=== PATIENT | female | born 1985 | race Caucasian/White ===

== ENCOUNTER 2017-04-27 20:40 | Observation (INO) ==
[2017-04-27] MEDS ORDERED: MORPHINE 2 MG/1 ML SYRINGE IV STA (21:04)
[2017-04-27] MEDS ORDERED: METOCLOPRAMIDE 10 MG/2 ML VIAL IV STA (21:04)
[2017-04-27] MEDS ORDERED: ONDANSETRON 4 MG/2 ML VIAL IV STA (21:04)
[2017-04-27] MEDS ORDERED: NITROGLYCERIN 2% OINT 1 INCH/GM PACK TOP STA (21:04)
--- NOTE | 2017-04-27 21:08 | Emergency Department Note ---
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 The patient does have a history of coronary artery disease with a prior history of an NH associated with stent placement this past August by Dr. Gonzales. Until today she has had no significant cardiac related problems. Currently she still has some mild degree of pain present and is still somewhat nauseated. Otherwise she is medically stable. Onset (ago): hour(s) (Patient presents 24 hours post onset of symptom) Allergies/Adverse Reactions: Allergies Allergy/AdvReac Type Severity Reaction Status Date / Time No Known Allergies Allergy Verified 04/27/17 20:51 Home Medications: Home Medications Medication Instructions Recorded Confirmed Type Citalopram [CeleXA] 20 mg PO DAILY 03/03/16 01/23/17 History Oxybutynin Xl [Ditropan Xl] 1 each PO DAILY 03/04/16 01/23/17 History Pantoprazole Tab [Protonix Tab] 40 mg PO BID #60 tablet 03/06/16 01/23/17 Rx Pregabalin [Lyrica] 75 mg PO BID 08/22/16 01/23/17 History Aspirin EC Tab 81 mg PO DAILY #30 tablet 08/24/16 01/23/17 Rx Lisinopril [Prinivil] 5 mg PO DAILY #30 tablet 08/24/16 01/23/17 Rx Metoprolol Tartrate Tab [Lopressor 25 mg PO BID #60 tablet 08/24/16 01/23/17 Rx Tab] Rosuvastatin [Crestor] 20 mg PO BEDTIME #30 tablet 08/24/16 01/23/17 Rx Ticagrelor [Brilinta] 90 mg PO BID #60 tablet 08/24/16 01/23/17 Rx Ketorolac Tab [Toradol Tab] 10 mg PO Q8H #14 tablet 01/24/17 Rx Review of System - Review of System 12 point system: reviewed and no additional remarkable complaints except as stated - Review of System Constitutional: Present: as per HPI Respiratory: Present: as per HPI Cardiovascular: Present: as per HPI Gastrointestinal: Present: as per HPI Medical,Surgical,& Family Hx - Medical History Cardio: History of: NH (stent Aug 2016) No history of: Hypertension Psychological: History of: Anxiety Disorders Endocrine: History of: Thyroid Disorder (MOTHER) No history of: Diabetes Mellitus (NIDDM) Rheumatology: History of;: Fibromyalgia Genitourinary: History of: Bladder Problem (overactive bladder) Gastrointestinal: History of: GERD - Surgical History Cardiac Surgeries: Sugical HX of: Cardiac Catheterization Thoracic Surgeries: Surgical HX of;: Lithotripsy Neurologic Surgeries: Patient denies: Neurologic Surgery HEENT Surgeries: Surgical HX of: Tonsilectomy & Adenoidectomy Reproductive Surgeries: Surgical HX of;: Section (X 3), Dilation and Curettage, Hysterectomy Orthopedic Surgeries: Surgical HX of;: Orthopedic Surgery (maninder horvath) Patient denies;: Total Knee Replacement - Family History Family History: Reports;: Family Cancer (MOTHER,OVARIAN, HAD HYSTERECTOMY), Family Diabetes (MOTHER), Family Heart Disease (MOTHER), Family Hypertension ( MOTHER, FATHER), Family Psychiatric Problems (FATHER HAS DEPRESSION) - Social History Smoking Status: Current every day smoker Exam Physical Examination: GENERAL: Well developed, well nourished white female in no acute distress. HEENT: Normocephalic. No trauma. Moist mucous membranes. EOMI. PERRLA. ENT NML NECK: Supple. No adenopathy. CARDIAC: Regular. No murmurs. Heart rate 58 CHEST: Clear to auscultation. No respiratory distress. O2 sat 98% ABDOMEN: Soft. Nontender. Active bowel sounds. EXTREMITIES: No trauma. Normal ROM. No pedal edema. SKIN: No diaphoresis. No rash. NEURO: Alert. Neuro intact no focal deficits. Vital Signs: Vital Signs Temperature 98.2 F 04/27/17 20:45 Pulse Rate 58 L 04/27/17 20:45 Respiratory Rate 18 04/27/17 20:45 Blood Pressure 156/89 04/27/17 20:45 O2 Sat by Pulse Oximetry 99 04/27/17 20:45 Course - Reevaluation(s) Reevaluation #1: Discussed with patient the results of her studies but given her premature atherosclerotic history she has been advised to come in on observation for serial studies. - Consultations Consultation #1: Discussed with the hospitalist service who will admit for further evaluation treatment. Results - Labs CBC & BMP: 04/27/17 21:25 04/27/17 21:25 Labs: I reviewed the laboratory noted the normal results including the normal cardiac' s. - Impressions EKG: Sinus bradycardia 57. Normal ME interval and QRS duration. Normal ST segments. Normal EKG. - Diagnostic Findings Procedure: Chest x-ray: image reviewed by me, report reviewed by me (No acute process, no interval change.) Disposition Clinical Impression: Angina, Status post NH/stent Case discussed with: patient, patient's family Disposition: Still a Patient Condition: Stable Time of Disposition: 22:15
[2017-04-27] MEDS ORDERED: NITROGLYCERIN 2% OINT 1 INCH/GM PACK TOP ONE (21:37)
[2017-04-27] MEDS ORDERED: MORPHINE 2 MG/1 ML SYRINGE ONE (21:38)
[2017-04-27] MEDS ORDERED: METOCLOPRAMIDE 10 MG/2 ML VIAL ONE (21:38)
[2017-04-27] MEDS ORDERED: ONDANSETRON 4 MG/2 ML VIAL ONE (21:38)
[2017-04-27 21:39] LABS: Basophils # 0.1 10*3/uL (0.0-0.2); Basophils % 0.8 % (0.0-0.8); Eosinophils # 0.3 10*3/uL (0.0-0.87); Eosinophils % 2.7 % (0.00-10.9); Hematocrit 37.9 VOL% (35.7-47.0); Hemoglobin 13.5 GM/DL (12.0-16.0); Immature Granulocytes % 0.4 %; Immature Granulocytes Absolute 0.04 #; Lymphocytes # 4.2 10*3/uL (1.4-4.0); Lymphocytes % 37.6 % (21.3-54.2); Mean Corpuscular HGB Conc 35.6 GM/DL (32-36); Mean Corpuscular Hemoglobin 29 PG (27-34); Mean Corpuscular Volume 81.9 FL (87-102); Mean Platelet Volume 8.8 FL (9.6-12.0); Monocytes # 0.9 10*3/uL (0.11-0.8); Monocytes % 7.9 % (1.7-12.7); Neutrophils # 5.7 10*3/uL (1.4-7.4); Neutrophils % 50.6 % (38.7-73.9); Platelet Count 326 T/CUMM (130-400); Red Blood Count 4.63 MC/CUMM (3.8-5.5); White Blood Count 11.3 T/CUMM (4-12)
[2017-04-27 21:45] LABS: Apearance,Urine CLEAR (Clear); Bilirubin,Urine Negative (Negative); Blood, Urine Small mg/dL (Negative); Glucose,Urine (UA) Negative (Negative); Ketones,Urine Negative (Negative); Mucus,Urine Occasional /LPF (Occasional); Nitrite,Urine Negative (Negative); Protein,Urine 30 MG/DL; RBC,Urine 2 /HPF (0-4); Squamous Epithelial Cell,Urine Occasional /HPF (0-10); Urine Color Yellow (Yellow); Urine Specific Gravity 1.012 (1.001-1.035); WBC,Urine 1 /HPF (0-6)
[2017-04-27 21:53] LABS: Barbiturates Screen,Urine Negative (Negative); Benzodiazepines Screen,Urine Negative (Negative); Cannabinoid Screen,Urine Negative (Negative); Opiate Screen,Urine Negative (Negative); Phencyclidine Screen,Urine Negative (Negative)
[2017-04-27 22:05] LABS: Alanine Aminotransferase 38 U/L (13-56); Albumin 3.5 G/DL (3.4-5.0); Alkaline Phosphatase 83 U/L (45-117); Aspartate Amino Transferase 28 U/L (0-37); Bilirubin,Total < 0.39 MG/DL (0.2-1.0); Blood Urea Nitrogen 9 MG/DL (7-18); Calcium 8.5 MG/DL (8.5-10.1); Glucose 106 MG/DL (74-106); Osmolality,Calculated 275.5 MOS/KG (273-304); Potassium 3.8 MMOL/L (3.5-5.1); Sodium 139 MMOL/L (136-145); Total Protein 7.5 G/DL (6.4-8.3); Troponin I Only < 0.015 NG/ML (0.00-0.045)
[2017-04-28] MEDS ORDERED: MORPHINE 2 MG/1 ML SYRINGE IV PRN (01:21)
[2017-04-28] MEDS ORDERED: ONDANSETRON 4 MG/2 ML VIAL IV PRN (01:21)
[2017-04-28] MEDS ORDERED: ACETAMINOPHEN 325 MG TABLET PO PRN (01:21)
[2017-04-28] MEDS ORDERED: LACTULOSE 20 GM/30 ML UDCUP PO PRN (01:21)
--- NOTE | 2017-04-28 01:40 | Hospitalist History & Physical ---
Assessment and Plan (1) Chest pain Status: Acute Assessment and plan: -oxygen - history of DC - chest wall tenderness present so it may be musculoskeletal - stopped Chantix because it may be contributing to chest discomfort - telemetry - serial cardiac enzyme - Nitropaste on chest from ER - Pain control - Lipid panel - echocardiogram - will monitor Current Visit: No History of Present Illness Chief complaint: Chest pain History of present illness: Ms. Sandoval is a 31 year old female with a history of hypertension, fibromyalgia, dyslipidemia, myocardial infarction (s/p 1 stent placed in LAD in August 2016 ) that presented to the ER with chest pain that started 1 day prior to admission. Patient reports that she has pain was in the left shoulder/upper chest region as described as moderate to severe and a dull ache. Patient also reports left jaw pain but she says it may be related to TMJ. Patient does report experiencing nausea, vomiting, diaphoresis but no shortness of breath or palpitations. Patient denies any other symptom. Of note, patient has been taking Chantix for 3 weeks so it may be contributing chest pain. By the time of exam, symptoms have resolved. Patient took nitroglycerin prior to arrival. Nitropaste was placed in [facility] ER and patient was also given Zofran, Reglan, and Morphine. ER workup was unremarkable. Patient was admitted to hospitalist service for observation. Home Medications Medication Instructions Recorded Confirmed Type Oxybutynin Xl [Ditropan Xl] 1 each PO DAILY 03/04/16 04/28/17 History Pantoprazole Tab [Protonix Tab] 40 mg PO BID #60 tablet 03/06/16 04/28/17 Rx Pregabalin [Lyrica] 75 mg PO BID 08/22/16 04/28/17 History Aspirin EC Tab 81 mg PO DAILY #30 tablet 08/24/16 04/28/17 Rx Lisinopril [Prinivil] 5 mg PO DAILY #30 tablet 08/24/16 04/28/17 Rx Rosuvastatin [Crestor] 20 mg PO BEDTIME #30 tablet 08/24/16 04/28/17 Rx Ticagrelor [Brilinta] 90 mg PO BID #60 tablet 08/24/16 04/28/17 Rx Citalopram [CeleXA] 1 tablet PO DAILY 04/28/17 04/28/17 History Metoprolol Tartrate 1 tablet PO BID 04/28/17 04/28/17 History PARoxetine [Paxil] 1 tablet PO DAILY 04/28/17 04/28/17 History Varenicline Tartrate [Chantix 1 tablet PO DAILY 04/28/17 04/28/17 History Starter Month Pack] Allergies Allergy/AdvReac Type Severity Reaction Status Date / Time No Known Allergies Allergy Verified 04/27/17 20:51 Medical,Surgical,& Family Hx - Medical History Cardio: History of: DC (stent Aug 2016) No history of: Hypertension Psychological: History of: Anxiety Disorders Endocrine: History of: Thyroid Disorder (MOTHER) No history of: Diabetes Mellitus (NIDDM) Rheumatology: History of;: Fibromyalgia Genitourinary: History of: Bladder Problem (overactive bladder) Gastrointestinal: History of: GERD - Surgical History Cardiac Surgeries: Sugical HX of: Cardiac Catheterization Thoracic Surgeries: Surgical HX of;: Lithotripsy Neurologic Surgeries: Patient denies: Neurologic Surgery HEENT Surgeries: Surgical HX of: Tonsilectomy & Adenoidectomy Reproductive Surgeries: Surgical HX of;: Section (X 3), Dilation and Curettage, Hysterectomy Orthopedic Surgeries: Surgical HX of;: Orthopedic Surgery (maninder horvath) Patient denies;: Total Knee Replacement - Family History Family History: Reports;: Family Cancer (MOTHER,OVARIAN, HAD HYSTERECTOMY), Family Diabetes (MOTHER), Family Heart Disease (MOTHER), Family Hypertension ( MOTHER, FATHER), Family Psychiatric Problems (FATHER HAS DEPRESSION) - Social History Smoking Status: Current every day smoker Review of systems: 12 point review of systems is negative unless stated in the HPI Exam - Constitutional Vitals: Period Temp Pulse Resp BP Sys/Galvan Pulse Ox Last 24 Hr 98.2 F-98.3 F 58-68 15-18 103-156/67-89 98-99 General appearance: no acute distress, over weight - Head Head exam: Present: normal inspection - Eye Eye exam: Present: EOMI - ENT ENT exam: Present: normal exam - Neck Neck exam: Present: normal inspection - Respiratory Respiratory exam: Present: clear to auscultation bilaterally, chest wall tenderness (left upper chest/shoulder area) - Cardiovascular Cardiovascular exam: Present: regular rate and rhythm. Absent: systolic murmur - GI/Abdominal GI/Abdominal exam: Present: normal bowel sounds, soft. Absent: distended, mass , tenderness - Extremities Exam Extremities exam: Present: normal inspection, other (peripheral pulses intact). Absent: edema - Neurological Exam Neurological exam: Present: alert, oriented X3 - Psychiatric Psychiatric exam: Present: normal affect, normal mood - Skin Skin exam: Present: normal color, warm, dry Results - Labs CBC & BMP: 04/27/17 21:25 04/27/17 21:25 - EKG EKG results: WNL, sinus rhythm, normal ST/T - Diagnostic Findings Procedure: Chest x-ray: pending
--- NOTE | 2017-04-28 02:52 | EKG Report ---
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
--- NOTE | 2017-04-28 02:52 | EKG Report ---
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
--- NOTE | 2017-04-28 05:03 | EKG Report ---
Stationary ECG Study 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
[2017-04-28 05:35] LABS: Troponin I Only < 0.015 NG/ML (0.00-0.045)
[2017-04-28 06:13] LABS: Risk Ratio 3.63; VLDL CHOLESTEROL 57.2 MG/DL
[2017-04-28 06:31] LABS: Troponin I Only < 0.015 NG/ML (0.00-0.045)
--- NOTE | 2017-04-28 07:04 | XRay Report ---
Portable chest. Indication: Chest pain. Comparison: December 04, 2016. The heart and mediastinal contours are unremarkable. The pulmonary vasculature is normal. There are hypoaeration changes present at both lung bases. No consolidation, pneumothorax, or pleural effusion. No significant bony finding. Impression: Bilateral basilar hypoaeration. PROCEDURE INTERPRETED AT [facility] DEPARTMENT OF RADIOLOGY Final Report Signed by: Dr. Angelina Reza
[2017-04-28] MEDS ORDERED: CITALOPRAM 40 MG TABLET PO SCH (09:00)
[2017-04-28] MEDS: OXYBUTYNIN XL 5 MG TABLET PO SCH (09:42)
[2017-04-28] MEDS: PANTOPRAZOLE 40 MG TABLET PO SCH ×2 (09:42→21:04)
[2017-04-28] MEDS: ENOXAPARIN 40 MG/0.4 ML SYRINGE SUBCUT SCH (09:42)
[2017-04-28] MEDS: ASPIRIN EC 81 MG TABLET PO SCH (09:42)
[2017-04-28] MEDS: METOPROLOL TARTRATE 25 MG TABLET PO SCH ×2 (09:42→21:03)
[2017-04-28] MEDS: PARoxetine 20 MG TABLET PO SCH (09:42)
[2017-04-28] MEDS: PREGABALIN 75 MG CAPSULE PO SCH ×2 (09:42→21:02)
[2017-04-28] MEDS: TICAGRELOR 90 MG TABLET PO SCH ×2 (09:42→21:03)
[2017-04-28] MEDS: LISINOPRIL 5 MG TABLET PO SCH (09:46)
--- NOTE | 2017-04-28 11:40 | Cardiology Consult Note ---
<Mariela Valdivia E - Last Filed: 04/28/17 12:06> Assessment and Plan - Time spent with patient Time spent with patient: Greater than 30 minutes (due to assessment, plan, and documentation) Time spent discussing smoking cessation with patient: 3 to 10 minutes (1) Chest pain Status: Acute Assessment and plan: See plan of care listed below. Current Visit: No (2) Coronary artery disease Status: Chronic Assessment and plan: See plan of care listed below. Current Visit: Yes (3) Tobacco abuse Status: Chronic Assessment and plan: See plan of care listed below. Current Visit: Yes (4) Anxiety Status: Chronic Assessment and plan: See plan of care listed below. Current Visit: Yes (5) GERD (gastroesophageal reflux disease) Status: Chronic Assessment and plan: See plan of care listed below. Current Visit: No (6) Family history of premature CAD Status: Chronic Current Visit: Yes History of Present Illness - Data of Consult Patient: known to practice within the last 3 years Consult date: 04/28/17 Requesting Physician: Sherri Berry Primary care physician: Meghan Dutton - Consult Narrative Reason for consult: chest pain History of present illness: Vehicle Dynamics Engineer: Dr. Gonzales PCP: Meghan Dutton Ms. Sandoval is a 31 year old female with a history of coronary artery disease, anxiety, GERD, tobacco abuse, and prior STEMI. She is s/p acute anterior myocardial infarction August 2016 when she received a BRYAN to her proximal LAD. She has had resolution of her wall motion abnormalities and had an essentially normal perfusion study done 3 months post event on 10/21/16. Since that time, she has presented to the emergency room for evaluation of chest discomfort which eventually was felt to be related to fibromyalgia and she has done well since that time. She was seen in clinic by Dr. Gonzales on 03/31 and was doing well at that time. At that time, she was ready to stop smoking and was started on a Chantix starter pack. She presented to the emergency room on 04/27/17 with complaints of chest pain that began Wednesday night. She tells me that this pain has stayed the same and has not gotten any worse or better until her arrival in the emergency room. She describes it as a sharp, stabbing pain with associated nausea, vomiting, and diaphoresis. She denies any shortness of breath or palpitations. She states that she took 2 sublingual nitroglycerin and they seem to help for a minute but she can still feel the pain. She states then the nitroglycerin made her chest feel heavy and numb and as if her heart was racing. She denies any recent exertional chest pain or shortness of breath. She notes no other exacerbating or alleviating factors. Her pain is nonreproducible to palpation, movement, or deep breath. Her pain did radiate from her left upper chest to left shoulder and left jaw/neck. She also has a history of TMJ. Upon arrival, her EKG has been unremarkable. She has been in sinus bradycardia. Her cardiac biomarkers have been negative. Her potassium is normal at 3.8, creatinine 0.7, H&H stable at 13.5 and 37.9. Lipid panel revealed triglycerides 286, cholesterol 87, LDL 35, HDL 24. ASSESSMENT/PLAN: 1. CHEST PAIN - With many atypical features of angina but significant risk factors. He has ruled out for HI. Will further discuss with Dr. Hunt and await additional recommendations. Per Dr. Gonzales's last note, he recommended repeat stress testing 6 months from prior stress test. 2. CORONARY ARTERY DISEASE - She is s/p acute anterior myocardial infarction August 2016 when she received a BRYAN to her proximal LAD. She has had resolution of her wall motion abnormalities and had an essentially normal perfusion study done 3 months post event on 10/21/16. 3. TOBACCO ABUSE - Currently trying to quit. She has cut down to 6 cigarettes daily. She has been trying Chantix but it was thought this could possibly be contributing to her chest discomfort. The patient tells me Dr. Gonzales was hesitant to try Wellbutrin due to her recently being changed from Celexa to Paxil. 4. ANXIETY - Chronic. 5. GERD - Continue PPI BID. 6. FAMILY HISTORY OF PREMATURE CAD CC: Sherri Berry MD - Home Medications and Allergies Home Medications: Home Medications Medication Instructions Recorded Confirmed Type Oxybutynin Xl [Ditropan Xl] 1 each PO DAILY 03/04/16 04/28/17 History Pantoprazole Tab [Protonix Tab] 40 mg PO BID #60 tablet 03/06/16 04/28/17 Rx Pregabalin [Lyrica] 75 mg PO BID 08/22/16 04/28/17 History Aspirin EC Tab 81 mg PO DAILY #30 tablet 08/24/16 04/28/17 Rx Lisinopril [Prinivil] 5 mg PO DAILY #30 tablet 08/24/16 04/28/17 Rx Rosuvastatin [Crestor] 20 mg PO BEDTIME #30 tablet 08/24/16 04/28/17 Rx Ticagrelor [Brilinta] 90 mg PO BID #60 tablet 08/24/16 04/28/17 Rx Citalopram [CeleXA] 1 tablet PO DAILY 04/28/17 04/28/17 History Metoprolol Tartrate 1 tablet PO BID 04/28/17 04/28/17 History PARoxetine [Paxil] 1 tablet PO DAILY 04/28/17 04/28/17 History Varenicline Tartrate [Chantix 1 tablet PO DAILY 04/28/17 04/28/17 History Starter Month Pack] Allergies/Adverse Reactions: Allergies Allergy/AdvReac Type Severity Reaction Status Date / Time No Known Allergies Allergy Verified 04/27/17 20:51 Review of systems: - Constitutional: Present: As per HPI. Absent: anorexia, chills, daytime sleepiness, excessive sweating, fever(s), frequent falls, headache(s), increased appetite, lethargy, malaise, night sweats, stops breathing during sleep, weakness, weight gain, weight loss, fatigue. - EENT Eyes: Present: As per HPI. Absent: blurry vision, diplopia, loss of vision Ears: Present: As per HPI. Absent: decreased hearing, ear discharge, ear pain Nose, mouth and throat: Present: As per HPI. Absent: dysphagia, epistaxis, headache(s), hoarseness, lip swelling, nasal congestion, neck mass, neck pain, sinus pressure, sore throat, throat swelling, tongue swelling, vertigo - Cardiovascular: Present: chest pain at rest, radiating jaw, neck or arm pain, diaphoresis, occasional BLE edema, as per HPI. Absent: chest pain with activity, dyspnea, dyspnea on exertion, claudication, lightheadedness, orthopnea , palpitations, PND - Respiratory: Present: as per HPI. Absent: dyspnea, dyspnea on exertion, cough , hemoptysis, wheezing, snoring, pain on inspiration - Gastrointestinal: Present: nausea, vomiting, As per HPI. Absent: abdominal pain, bloating, change in bowel habits, constipation, diarrhea, heartburn, hematemesis, hematochezia, loose stools, melena, - Genitourinary: Present: As per HPI. Absent: difficulty urinating, dysuria, flank pain, hematuria, nocturia, urinary frequency, urinary incontinence - Musculoskeletal: Present: As per HPI. Absent: arthralgias, back pain, joint swelling, limited range of motion, muscle cramps, muscle weakness, myalgias - Neurological: Present: As per HPI. Absent: abnormal gait, abnormal speech, behavioral changes, confusion, convulsions, disequilibrium, dizziness, focal weakness, frequent falls, headache(s), memory loss, numbness, paresthesias, radicular pain, syncope, tremor(s) - Psychiatric: Present: As per HPI. Absent: anxiety, confusion, depression, panic attacks - Endocrine: Present: As per HPI. Absent: cold intolerance, fatigue, heat intolerance, polydipsia, polyphagia - Hematologic/Lymphatic: Present: As per HPI. Absent: easy bleeding, easy bruising, lymphadenopathy Medical,Surgical,& Family Hx - Medical History Cardio: History of: CAD, HI (stent Aug 2016) No history of: Hypertension Psychological: History of: Anxiety Disorders Endocrine: History of: Thyroid Disorder (MOTHER) No history of: Diabetes Mellitus (NIDDM) Rheumatology: History of;: Fibromyalgia Genitourinary: History of: Bladder Problem (overactive bladder) Gastrointestinal: History of: GERD - Surgical History Cardiac Surgeries: Sugical HX of: Cardiac Catheterization Thoracic Surgeries: Surgical HX of;: Lithotripsy Neurologic Surgeries: Patient denies: Neurologic Surgery HEENT Surgeries: Surgical HX of: Tonsilectomy & Adenoidectomy Reproductive Surgeries: Surgical HX of;: Section (X 3), Dilation and Curettage, Genitourinary Surgery, Hysterectomy Orthopedic Surgeries: Surgical HX of;: Orthopedic Surgery (torn patilla) Patient denies;: Total Knee Replacement - Family History Family History: Reports;: Family Cancer (MOTHER,OVARIAN, HAD HYSTERECTOMY), Family Diabetes (MOTHER), Family Heart Disease (MOTHER), Family Hypertension ( MOTHER, FATHER), Family Psychiatric Problems (FATHER HAS DEPRESSION) - Social History Smoking Status: Current every day smoker Type of Drug Use: None Marital Status: Lives With:: Spouse Functional capacity: independent ambulation Physical Examination Vital Signs Temp Pulse Resp BP Pulse Ox 98.2 F 58 L 18 156/89 99 04/27/17 20:45 04/27/17 20:45 04/27/17 20:45 04/27/17 20:45 04/27/17 20:45 Exam: General appearance: Pleasant and cooperative. Overweight, no acute distress. Head exam: Present: normal inspection, normocephalic, atraumatic. Absent: hematoma, laceration Eye exam: Present: EOMI. Absent: conjunctival injection, nystagmus, periorbital swelling, scleral icterus, laceration to eyelids Pupils: Present: PERRL. Absent: constricted, dilated, fixed, irregular, unequal ENT exam: Present: normal exam, normal external ear exam Neck exam: Present: normal inspection. Absent: lymphadenopathy, meningismus, tenderness, thyromegaly, carotid bruit Respiratory exam: Present: clear to auscultation bilaterally. Absent: accessory muscle use, chest wall tenderness, rales, rhonchi, wheezing. Cardiovascular exam: Present: regular rate and rhythm. Absent: gallop, JVD, rubs, chest wall tenderness GI/Abdominal exam: Present: normal bowel sounds, soft. Absent: distended, firm , guarding, hernia, mass, tenderness, rebound. Extremities exam: Present: normal inspection, normal capillary refill. Upper extremity pulses 2+. Lower extremity pulses 2+. Absent: calf tenderness, edema Musculoskeletal: Present: No Fluid Collection, No Pain, Normal Range of Motion Back exam: Present: normal inspection. Absent: muscle spasm, vertebral tenderness Neurological exam: Present: alert, oriented X3, grossly intact without resting or essential tremor Psychiatric exam: Present: normal affect, normal mood Skin exam: Present: normal color, warm, dry, intact. Absent: cyanosis, diaphoretic, rash, urticaria Result/EKG - Labs CBC & BMP: 04/27/17 21:25 04/27/17 21:25 Lab Results: I have reviewed the past 24 hour labs Labs: Laboratory Results - last 24 hr 04/27/17 04/27/17 04/27/17 21:25 21:25 21:25 WBC RBC Hgb Hct MCV MCH MCHC RDW Plt Count MPV Neut % (Auto) Lymph % (Auto) [place] % (Auto) Eos % (Auto) Baso % (Auto) Neut # (Auto) Lymph # (Auto) [place] # (Auto) Eos # (Auto) Baso # (Auto) Immature Gran % Nucleated RBC % Immature Gran # Nucleated RBCs # Immature Plt Fraction Sodium 139 Potassium 3.8 Chloride 108 H Carbon Dioxide 26 Anion Gap 8.8 BUN 9 Creatinine 0.70 GFR Calculation 123 BUN/Creatinine Ratio 12.00 Glucose 106 Calculated Osmolality 275.5 Calcium 8.5 Total Bilirubin < 0.39 AST 28 ALT 38 Alkaline Phosphatase 83 Total Creatine Kinase 149 CK-MB (CK-2) 2.5 Troponin I < 0.015 Total Protein 7.5 Albumin 3.5 Globulin 4.0 H Albumin/Globulin Ratio 0.8 L Triglycerides Cholesterol LDL Cholesterol VLDL Cholesterol HDL Cholesterol Heart Disease Risk Ratio Urine Color Yellow Urine Appearance Clear Urine pH 6.0 Ur Specific [place] 1.012 Urine Protein 30 Urine Glucose (UA) Negative Urine Ketones Negative Urine Blood Small Urine Nitrate Negative Urine Bilirubin Negative Urine Urobilinogen 2.0 H Urine Leukocytes Negative Urine RBC 2 Urine WBC 1 Ur Squamous Epith Cells Occasional Urine Mucus Occasional Ur Culture Indicated? Not indicated Urine Opiates Screen Negative Ur Barbiturates Screen Negative Ur Phencyclidine Scrn Negative U Amphetamine/Methamph Negative U Benzodiazepines Scrn Negative U Cocaine Metab Screen Negative U Cannabinoids Screen Negative 04/27/17 04/28/17 04/28/17 21:25 01:00 01:20 WBC 11.3 RBC 4.63 Hgb 13.5 Hct 37.9 MCV 81.9 L MCH 29 MCHC 35.6 RDW 13.0 Plt Count 326 MPV 8.8 L Neut % (Auto) 50.6 Lymph % (Auto) 37.6 [place] % (Auto) 7.9 Eos % (Auto) 2.7 Baso % (Auto) 0.8 Neut # (Auto) 5.7 Lymph # (Auto) 4.2 H [place] # (Auto) 0.9 H Eos # (Auto) 0.3 Baso # (Auto) 0.1 Immature Gran % 0.4 Nucleated RBC % 0.0 Immature Gran # 0.04 Nucleated RBCs # 0.00 Immature Plt Fraction 0.0 Sodium Potassium Chloride Carbon Dioxide Anion Gap BUN Creatinine GFR Calculation BUN/Creatinine Ratio Glucose Calculated Osmolality Calcium Total Bilirubin AST ALT Alkaline Phosphatase Total Creatine Kinase 118 D CK-MB (CK-2) 2.2 Troponin I < 0.015 < 0.015 Total Protein Albumin Globulin Albumin/Globulin Ratio Triglycerides Cholesterol LDL Cholesterol VLDL Cholesterol HDL Cholesterol Heart Disease Risk Ratio Urine Color Urine Appearance Urine pH Ur Specific [place] Urine Protein Urine Glucose (UA) Urine Ketones Urine Blood Urine Nitrate Urine Bilirubin Urine Urobilinogen Urine Leukocytes Urine RBC Urine WBC Ur Squamous Epith Cells Urine Mucus Ur Culture Indicated? Urine Opiates Screen Ur Barbiturates Screen Ur Phencyclidine Scrn U Amphetamine/Methamph U Benzodiazepines Scrn U Cocaine Metab Screen U Cannabinoids Screen 04/28/17 04/28/17 04/28/17 04:59 04:59 07:39 WBC RBC Hgb Hct MCV MCH MCHC RDW Plt Count MPV Neut % (Auto) Lymph % (Auto) [place] % (Auto) Eos % (Auto) Baso % (Auto) Neut # (Auto) Lymph # (Auto) [place] # (Auto) Eos # (Auto) Baso # (Auto) Immature Gran % Nucleated RBC % Immature Gran # Nucleated RBCs # Immature Plt Fraction Sodium Potassium Chloride Carbon Dioxide Anion Gap BUN Creatinine GFR Calculation BUN/Creatinine Ratio Glucose Calculated Osmolality Calcium Total Bilirubin AST ALT Alkaline Phosphatase Total Creatine Kinase 119 CK-MB (CK-2) 1.9 Troponin I < 0.015 < 0.015 Total Protein Albumin Globulin Albumin/Globulin Ratio Triglycerides 286 H Cholesterol 87 LDL Cholesterol 35.0 VLDL Cholesterol 57.2 HDL Cholesterol 24 L Heart Disease Risk Ratio 3.63 Urine Color Urine Appearance Urine pH Ur Specific [place] Urine Protein Urine Glucose (UA) Urine Ketones Urine Blood Urine Nitrate Urine Bilirubin Urine Urobilinogen Urine Leukocytes Urine RBC Urine WBC Ur Squamous Epith Cells Urine Mucus Ur Culture Indicated? Urine Opiates Screen Ur Barbiturates Screen Ur Phencyclidine Scrn U Amphetamine/Methamph U Benzodiazepines Scrn U Cocaine Metab Screen U Cannabinoids Screen - EKG EKG results: interpreted by me, sinus rhythm EKG shows: bradycardia <Davina Hunt - Last Filed: 04/28/17 16:02> Assessment and Plan (1) Non-cardiac chest pain Status: Chronic Current Visit: Yes (2) Coronary artery disease Status: Chronic Current Visit: Yes Qualifiers: Coronary Disease-Associated Artery/Lesion type: [place] artery [place] vs. transplanted heart: [place] heart Associated angina: without angina Qualified Code(s): I25.10 - Atherosclerotic heart disease of [place] coronary artery without angina pectoris (3) Fibromyalgia Status: Chronic Current Visit: Yes (4) Gastroenteritis Status: Resolved Current Visit: No (5) Tobacco abuse Status: Chronic Assessment and plan: I talked to the patient about smoking she is taking Chantix states that she is going to quit she is using some sort of electronic device at this time. She does not yet have a stop date Current Visit: Yes (6) Anxiety Status: Chronic Current Visit: Yes History of Present Illness - Consult Narrative History of present illness: Ms. Sandoval is a 31 year old female with premature atherosclerotic vascular disease with PCI of the LAD in August [address] Gonzales. The patient states that she is compliant with her medicines but she is noncompliant with her medical regimen she continues to smoke she is very sedentary. She had atypical chest pain except that it did radiate to her arm for a brief period it lasted for greater than 3 days and was not associated with any other symptoms. Nitroglycerin seems to not have helped significantly. This to me sounds noncardiac but we should workup further given the fact she is 9 months out from stent. CC: Sherri Berry MD Review of systems: This patient has noncardiac chest pain. She has fibromyalgia and hurts all over. She states that she was nauseated for one episode but she had greater than 3 days of constant chest pain that was 6 out of 7 with no precipitating or relieving factors. She states that she has been taking her dual antiplatelet therapy. She continues to smoke and she is scheduled for a gated walking nuclear stress test tomorrow. Physical Examination Vital Signs Temp Pulse Resp BP Pulse Ox 98.2 F 58 L 18 156/89 99 04/27/17 20:45 04/27/17 20:45 04/27/17 20:45 04/27/17 20:45 04/27/17 20:45 Result/EKG - Labs CBC & BMP: 04/27/17 21:25 04/27/17 21:25 Labs: Laboratory Results - last 24 hr 04/27/17 04/27/17 04/27/17 21:25 21:25 21:25 WBC RBC Hgb Hct MCV MCH MCHC RDW Plt Count MPV Neut % (Auto) Lymph % (Auto) [place] % (Auto) Eos % (Auto) Baso % (Auto) Neut # (Auto) Lymph # (Auto) [place] # (Auto) Eos # (Auto) Baso # (Auto) Immature Gran % Nucleated RBC % Immature Gran # Nucleated RBCs # Immature Plt Fraction Sodium 139 Potassium 3.8 Chloride 108 H Carbon Dioxide 26 Anion Gap 8.8 BUN 9 Creatinine 0.70 GFR Calculation 123 BUN/Creatinine Ratio 12.00 Glucose 106 Calculated Osmolality 275.5 Calcium 8.5 Total Bilirubin < 0.39 AST 28 ALT 38 Alkaline Phosphatase 83 Total Creatine Kinase 149 CK-MB (CK-2) 2.5 Troponin I < 0.015 Total Protein 7.5 Albumin 3.5 Globulin 4.0 H Albumin/Globulin Ratio 0.8 L Triglycerides Cholesterol LDL Cholesterol VLDL Cholesterol HDL Cholesterol Heart Disease Risk Ratio Urine Color Yellow Urine Appearance Clear Urine pH 6.0 Ur Specific [place] 1.012 Urine Protein 30 Urine Glucose (UA) Negative Urine Ketones Negative Urine Blood Small Urine Nitrate Negative Urine Bilirubin Negative Urine Urobilinogen 2.0 H Urine Leukocytes Negative Urine RBC 2 Urine WBC 1 Ur Squamous Epith Cells Occasional Urine Mucus Occasional Ur Culture Indicated? Not indicated Urine Opiates Screen Negative Ur Barbiturates Screen Negative Ur Phencyclidine Scrn Negative U Amphetamine/Methamph Negative U Benzodiazepines Scrn Negative U Cocaine Metab Screen Negative U Cannabinoids Screen Negative 04/27/17 04/28/17 04/28/17 21:25 01:00 01:20 WBC 11.3 RBC 4.63 Hgb 13.5 Hct 37.9 MCV 81.9 L MCH 29 MCHC 35.6 RDW 13.0 Plt Count 326 MPV 8.8 L Neut % (Auto) 50.6 Lymph % (Auto) 37.6 [place] % (Auto) 7.9 Eos % (Auto) 2.7 Baso % (Auto) 0.8 Neut # (Auto) 5.7 Lymph # (Auto) 4.2 H [place] # (Auto) 0.9 H Eos # (Auto) 0.3 Baso # (Auto) 0.1 Immature Gran % 0.4 Nucleated RBC % 0.0 Immature Gran # 0.04 Nucleated RBCs # 0.00 Immature Plt Fraction 0.0 Sodium Potassium Chloride Carbon Dioxide Anion Gap BUN Creatinine GFR Calculation BUN/Creatinine Ratio Glucose Calculated Osmolality Calcium Total Bilirubin AST ALT Alkaline Phosphatase Total Creatine Kinase 118 D CK-MB (CK-2) 2.2 Troponin I < 0.015 < 0.015 Total Protein Albumin Globulin Albumin/Globulin Ratio Triglycerides Cholesterol LDL Cholesterol VLDL Cholesterol HDL Cholesterol Heart Disease Risk Ratio Urine Color Urine Appearance Urine pH Ur Specific [place] Urine Protein Urine Glucose (UA) Urine Ketones Urine Blood Urine Nitrate Urine Bilirubin Urine Urobilinogen Urine Leukocytes Urine RBC Urine WBC Ur Squamous Epith Cells Urine Mucus Ur Culture Indicated? Urine Opiates Screen Ur Barbiturates Screen Ur Phencyclidine Scrn U Amphetamine/Methamph U Benzodiazepines Scrn U Cocaine Metab Screen U Cannabinoids Screen 04/28/17 04/28/17 04/28/17 04:59 04:59 07:39 WBC RBC Hgb Hct MCV MCH MCHC RDW Plt Count MPV Neut % (Auto) Lymph % (Auto) [place] % (Auto) Eos % (Auto) Baso % (Auto) Neut # (Auto) Lymph # (Auto) [place] # (Auto) Eos # (Auto) Baso # (Auto) Immature Gran % Nucleated RBC % Immature Gran # Nucleated RBCs # Immature Plt Fraction Sodium Potassium Chloride Carbon Dioxide Anion Gap BUN Creatinine GFR Calculation BUN/Creatinine Ratio Glucose Calculated Osmolality Calcium Total Bilirubin AST ALT Alkaline Phosphatase Total Creatine Kinase 119 CK-MB (CK-2) 1.9 Troponin I < 0.015 < 0.015 Total Protein Albumin Globulin Albumin/Globulin Ratio Triglycerides 286 H Cholesterol 87 LDL Cholesterol 35.0 VLDL Cholesterol 57.2 HDL Cholesterol 24 L Heart Disease Risk Ratio 3.63 Urine Color Urine Appearance Urine pH Ur Specific [place] Urine Protein Urine Glucose (UA) Urine Ketones Urine Blood Urine Nitrate Urine Bilirubin Urine Urobilinogen Urine Leukocytes Urine RBC Urine WBC Ur Squamous Epith Cells Urine Mucus Ur Culture Indicated? Urine Opiates Screen Ur Barbiturates Screen Ur Phencyclidine Scrn U Amphetamine/Methamph U Benzodiazepines Scrn U Cocaine Metab Screen U Cannabinoids Screen - EKG EKG results: interpreted by me EKG shows: bradycardia
--- NOTE | 2017-04-28 15:52 | ECHO Report ---
Jaime Nia Exam Date: 04/28/2017 08:53 Referring Physician: Technologist: rubi Lara ARDMS, RVT Age: 31 Ht (in): 62 Wt (lb): 180 Gender: F Exam Location: [facility] Echo Indications: Chest pain, unspecified, N/V, Diaphoreses, Hx: SC w/stent BP: 104 / 50 HR: 51 Rhythm: Sinus Technical Quality: good IMPRESSIONS Left ventricular ejection fraction is estimated at 65 %. Diastolic parameters are normal. Mild tricuspid valve regurgitation. Tricuspid regurgitation velocities suggest a RVSP of 32 mmHg plus the right atrial pressure. MEASUREMENTS (Male / Female) Normal Values 2D ECHO LV Diastolic Diameter PLAX 4.0 cm 4.2 - 5.9 / 3.9 - 5.3 cm LV Systolic Diameter PLAX 2.6 cm LV Fractional Shortening PLAX 35.3 % IVS Diastolic Thickness 0.9 cm 0.6 - 1.0 / 0.6 - 0.9 cm LVPW Diastolic Thickness 1.0 cm 0.6 - 1.0 / 0.6 - 0.9 cm RV Internal Dim ED PLAX 2.4 cm Aortic Root Diameter 2.6 cm LA Systolic Diameter LX 3.3 cm 3.0 - 4.0 / 2.7 - 3.8 cm DOPPLER TR Peak Velocity 285.0 cm/s TR Peak Gradient 32.5 mmHg FINDINGS Left Ventricle Normal left ventricular cavity size. Normal left ventricular wall thickness. Left ventricular ejection fraction is estimated at 65 %. Diastolic parameters are normal Right Ventricle The right ventricle is normal in size and function. Right Atrium The right atrium is normal in size. Left Atrium The left atrium is normal in size. Mitral Valve Morphologically normal mitral valve without significant stenosis or prolapse. There is no mitral regurgitation. Aortic Valve Morphologically normal aortic valve without significant sclerosis or stenosis. There is no aortic regurgitation. Tricuspid Valve Morphologically normal tricuspid valve. Mild tricuspid valve regurgitation. Tricuspid regurgitation velocities suggest a RVSP of 32 mmHg plus the right atrial pressure. Pulmonic Valve Morphologically normal pulmonic valve. Pericardium Normal pericardium without effusion. Aorta Normal ascending aorta dimension. Davina Hunt (Electronically Signed) Final Date: 28 April 2017 15:51
[2017-04-28] MEDS ORDERED: ROSUVASTATIN 20 MG TABLET PO SCH (21:00)
--- NOTE | 2017-04-29 08:41 | Cardiology Progress Note ---
<Mariela Valdivia E - Last Filed: 04/29/17 08:43> Assessment and Plan - Time spent with patient Time spent with patient: Less than 30 minutes (1) Chest pain Status: Acute Assessment and plan: Underwent nuclear stress testing this morning. Awaiting these results. She already has a follow up appointment with Dr. Gonzales at the end of the month. I would recommend she continue with medical regimen and urge compliance with diet , exercise, and tobacco cessation. Current Visit: No (2) Coronary artery disease Status: Chronic Assessment and plan: She is s/p acute anterior myocardial infarction August 2016 when she received a BRYAN to her proximal LAD. She has had resolution of her wall motion abnormalities and had an essentially normal perfusion study done 3 months post event on 10/21/16. Continue DAPT as well as PAMELA, Beta mere, and statin. Current Visit: Yes (3) Tobacco abuse Status: Chronic Assessment and plan: Currently trying to quit. She has cut down to 6 cigarettes daily. She was started on Chantix less than 1 month ago. The patient tells me Dr. Gonzales was hesitant to try Wellbutrin due to her recently being changed from Celexa to Paxil. Current Visit: Yes (4) Anxiety Status: Chronic Assessment and plan: Current Visit: Yes (5) GERD (gastroesophageal reflux disease) Status: Chronic Assessment and plan: Continue PPI. Current Visit: No (6) Family history of premature CAD Status: Chronic Current Visit: Yes Cardiology - PN: Subj Interval history: Stereo Compiler: Dr. Gonzales PCP: Meghan Dutton SUMMARY: Ms. Sandoval is a 31-year-old female who presented with complaints of chest pain that began on Wednesday night. She has premature atherosclerotic vascular disease with PCI of the LAD in [place] [address] Gonzales. She ruled out for VT with negative cardiac biomarkers and unremarkable EKG and was scheduled for nuclear stress testing on 04/29/2017. APRIL 29, 2017 UPDATE: Ms. Sandoval had no acute overnight events. She tolerated stress testing fairly well this morning with very minimal chest discomfort at the end of testing that improved with rest. Vital signs remain stable. Dr. Hunt to read, interpret, and advise. ASSESSMENT/PLAN: 1. CHEST PAIN - Underwent nuclear stress testing this morning. Awaiting these results. She already has a follow up appointment with Dr. Gonzales at the end of the month. I would recommend she continue with medical regimen and urge compliance with diet, exercise, and tobacco cessation. 2. CORONARY ARTERY DISEASE - She is s/p acute anterior myocardial infarction August 2016 when she received a BRYAN to her proximal LAD. She has had resolution of her wall motion abnormalities and had an essentially normal perfusion study done 3 months post event on 10/21/16. Continue DAPT as well as PAMELA, Beta mere, and statin. 3. TOBACCO ABUSE - Currently trying to quit. She has cut down to 6 cigarettes daily. She was started on Chantix less than 1 month ago. The patient tells me Dr. Gonzales was hesitant to try Wellbutrin due to her recently being changed from Celexa to Paxil. 4. ANXIETY - Chronic. 5. GERD - Continue PPI BID. 6. FAMILY HISTORY OF PREMATURE CAD Exam (Progress Note) - Constitutional Vitals: Period Temp Pulse Resp BP Sys/Galvan Pulse Ox Last 24 Hr 97.2 F-98.8 F 56-65 18-18 99-119/51-63 97-99 Exam: General appearance: Pleasant and cooperative. Overweight, no acute distress. Head exam: Present: normal inspection, normocephalic, atraumatic. Absent: hematoma, laceration Eye exam: Present: EOMI. Absent: conjunctival injection, nystagmus, periorbital swelling, scleral icterus, laceration to eyelids Pupils: Present: PERRL. Absent: constricted, dilated, fixed, irregular, unequal ENT exam: Present: normal exam, normal external ear exam Neck exam: Present: normal inspection. Absent: lymphadenopathy, meningismus, tenderness, thyromegaly, carotid bruit Respiratory exam: Present: clear to auscultation bilaterally. Absent: accessory muscle use, chest wall tenderness, rales, rhonchi, wheezing. Cardiovascular exam: Present: regular rate and rhythm. Absent: gallop, JVD, rubs, chest wall tenderness GI/Abdominal exam: Present: normal bowel sounds, soft. Absent: distended, firm , guarding, hernia, mass, tenderness, rebound. Extremities exam: Present: normal inspection, normal capillary refill. Upper extremity pulses 2+. Lower extremity pulses 2+. Absent: calf tenderness, edema Musculoskeletal: Present: No Fluid Collection, No Pain, Normal Range of Motion Back exam: Present: normal inspection. Absent: muscle spasm, vertebral tenderness Neurological exam: Present: alert, oriented X3, grossly intact without resting or essential tremor Psychiatric exam: Present: normal affect, normal mood Skin exam: Present: normal color, warm, dry, intact. Absent: cyanosis, diaphoretic, rash, urticaria Result/EKG - Labs CBC & BMP: 04/27/17 21:25 04/27/17 21:25 Lab Results: I have reviewed the past 24 hour labs Labs: Laboratory Results - last 24 hr 04/28/17 07:39 Troponin I < 0.015 - EKG EKG results: interpreted by me, sinus rhythm Specialty Discharge - Follow Up or Referrals Follow up with: Brenden Gonzales MD [Physician] - 05/06/17 2:10 pm <Davina Hunt - Last Filed: 04/29/17 09:29> Assessment and Plan (1) Non-cardiac chest pain Status: Chronic Current Visit: Yes (2) Coronary artery disease Status: Chronic Current Visit: Yes Qualifiers: Coronary Disease-Associated Artery/Lesion type: rincon artery [place] vs. transplanted heart: rincon heart Associated angina: without angina Qualified Code(s): I25.10 - Atherosclerotic heart disease of rincon coronary artery without angina pectoris (3) Fibromyalgia Status: Chronic Current Visit: Yes (4) Gastroenteritis Status: Resolved Current Visit: No (5) Tobacco abuse Status: Chronic Current Visit: Yes (6) Anxiety Status: Chronic Current Visit: Yes Exam (Progress Note) - Constitutional Vitals: Period Temp Pulse Resp BP Sys/Galvan Pulse Ox Last 24 Hr 97.2 F-98.8 F 56-65 18-18 99-119/51-63 97-99 Result/EKG - Labs CBC & BMP: 04/27/17 21:25 04/27/17 21:25
--- NOTE | 2017-04-29 08:43 | Event Note ---
Patient for nuclear stress testing this morning, presented with atypical chest pain. She achieved target heart rate in stage III or IV Bal protocol. She was noted to have moderate dyspnea on exertion and fatigue. At the end of testing, she noted minimal left chest wall pain, same pain since the pain that she presented with. She rated as a 2 out of 10, sharp and stabbing in nature. Improved with rest. Minimal inferior upsloping ST depression was noted, improved with rest. No other acute EKG changes noted. Patient had no dizziness , lightheadedness, or syncope. Patient now to nuclear medicine for final scan. Dr. Hunt to read, interpret, and advise.
[2017-04-29] MEDS: PARoxetine 20 MG TABLET PO SCH (09:59)
[2017-04-29] MEDS: TICAGRELOR 90 MG TABLET PO SCH (09:59)
[2017-04-29] MEDS: PREGABALIN 75 MG CAPSULE PO SCH (09:59)
[2017-04-29] MEDS: METOPROLOL TARTRATE 25 MG TABLET PO SCH (10:00)
[2017-04-29] MEDS: ENOXAPARIN 40 MG/0.4 ML SYRINGE SUBCUT SCH (10:00)
[2017-04-29] MEDS: ASPIRIN EC 81 MG TABLET PO SCH (10:00)
[2017-04-29] MEDS: LISINOPRIL 5 MG TABLET PO SCH (10:00)
[2017-04-29] MEDS: PANTOPRAZOLE 40 MG TABLET PO SCH ×2 (10:01)
--- NOTE | 2017-04-29 10:02 | Discharge Summary ---
Hospital Course - Hospital Course Hospital Course: Ms. Sandoval is a 31-year-old white female with history of hypertension, fibromyalgia, dyslipidemia and NE status post stent placement in the LAD in August 2016 admitted by the hospitalist on 04/26/2017 with chest pain and left jaw pain. This was associated with nausea, vomiting, and diaphoresis. Serial troponins and EKGs were obtained which were okay. Cardiology was consulted and performed a stress test. She was able to achieve her target heart rate but she did have moderate dyspnea on exertion and fatigue. She did have some minimal left chest wall pain that improved with rest. She also had minimal inferior upsloping ST depression noted that also improved with rest. She did not have any dizziness, lightheadedness, or syncope. Dr. Hunt has read her nuclear medicine scan and states everything is good to go and she is ready for discharge. Patient is doing well she has had no further episodes of chest pain , shortness of breath, or nausea. Patient already has a scheduled follow-up with Dr. Gonzales in 1 month. She is instructed to keep this appointment and continue her current medications. Care coordination, chart review, and completed discharge paperwork took approximately 33 minutes. - Time spent with patient Time with patient DS: Greater than 30 minutes Diagnosis - Discharge Diagnosis (1) Hypertension Status: Chronic (2) Hyperlipidemia Status: Chronic (3) Chest pain Status: Resolved (4) Hx of coronary artery disease Status: Chronic (5) Family history of premature CAD Status: Chronic (6) Fibromyalgia Status: Chronic Specialty Discharge - Follow Up or Referrals Follow up with: Brenden Gonzales MD [Physician] - 05/06/17 2:10 pm Discharge Plan - Discharge Data Disposition: Disch To Home/Self Care Condition at Discharge: Stable Discharge Diet: heart healthy Activity: resume usual activities as tolerated Driving: no restrictions Contact your physician if you experience:: Shortness of breath, pain uncontrolled by pain medications - Discharge Medications Continue Oxybutynin Xl [Ditropan Xl] 1 each PO DAILY Pantoprazole Tab [Protonix Tab] 40 mg PO BID #60 tablet Pregabalin [Lyrica] 75 mg PO BID Aspirin EC Tab 81 mg PO DAILY #30 tablet Varenicline Tartrate [Chantix Starter Month Pack] 1 tablet PO DAILY Citalopram [CeleXA] 1 tablet PO DAILY Metoprolol Tartrate 1 tablet PO BID Lisinopril [Prinivil] 5 mg PO DAILY #30 tablet Rosuvastatin [Crestor] 20 mg PO BEDTIME #30 tablet Ticagrelor [Brilinta] 90 mg PO BID #60 tablet PARoxetine [Paxil] 1 tablet PO DAILY - Follow Up or Referral Follow Up: Brenden Gonzales MD [Physician] - 05/06/17 2:10 pm - Forms/Instructions Forms: Acute Care Work/School Release Exam - Constitutional Vitals: Period Temp Pulse Resp BP Sys/Galvan Pulse Ox Last 24 Hr 97.2 F-98.8 F 56-65 18-18 99-119/51-63 97-99 Exam: 31-year-old white female, no acute distress, alert and oriented Chest clear CV regular rate and rhythm Abdomen obese, nontender Extremities no edema Discharge Results Procedures and tests throughout hospitalization: Pending Orders 04/29/17 04:00 NM miles perf SPECT rest or str IN AM DS: Provider Date of admission: 04/27/17 23:43 Primary care physician: BALTAZAR Cole Attending physician on admission: Rodrigo Roy MD Consults: 04/28/17 03:03 Consult to Pastoral Services [CONS] Routine Comment: Pastoral Screen: Request Program Manager Visit Pastoral Screen Source of Request: Patient 04/28/17 09:51 Consult to Physician [CONS] Routine Comment: Consulting Provider: Cardiology - [facility] Person Notified: Phylicia Date Notified: 04/28/17 Time Notified: 10:10 Discharging clinician: PRATIBHA Hines Expected date of discharge: 04/29/17
[2017-04-29] MEDS: OXYBUTYNIN XL 5 MG TABLET PO SCH (10:14)
[2017-04-29 12:08] VITALS: BP 111/61
--- NOTE | 2017-04-30 07:17 | Nuclear Medicine Report ---
ROUTINE NUCLEAR STRESS TEST Date: 04/29/2017 This is a 31-year-old female with known coronary artery disease and previous PCI. The patient was ru led out for myocardial infarction, admitted with atypical chest pain. She underwent gated nuclear st ress test under the direction of Mariela Valdivia [facility]-. I reviewed the tracings as well as the nuclear imaging including raw data, multidimensional analysis, multiplanar SPECT images, computer-generated v entriculography, and computer-generated quantitative analysis. It was viewed in both [facility] and :Qs data. The patient ambulated by standard Bal protocol to a maximum of 9.7 METS and 83% of maximum predicte d heart rate. She reached stage III of the Bal protocol. She had no EKG changes during her exerci se. She had appropriate blood pressure and heart rate response, slightly blunted heart rate response at rest. The blood pressure was 110/72 and it went to 146/60. The patient received 10.0 mCi Technetium-99m and Cardiolite for rest images followed 30.0 mCi of Tech netium-99m and Cardiolite for stress images. All images were reviewed as dictated above. Raw data d emonstrates a significant amount of GI uptake in both rest and stress images. The computer-generated ventriculogram shows no evidence of regional wall motion abnormality. The end-diastolic volume is e stimated at 84 cc, end-systolic volume at 26 cc, an ejection fraction of 69% with no regional wall mo tion abnormality. Multiplanar SPECT images demonstrate an area of patchy photopenia at the apex that is without significant change in rest and stress. There were no prone images. This is felt due to the subtle difference to represent most likely artifact; however, could represent subtle ischemia. C omputer quantitative analysis demonstrates a summed stress score of 3, summed rest score of 2 and sum med difference score of 1. There is no regional wall motion abnormality in this very small segment. This is [id number] photopenia in a small area. IMPRESSION: 1. SUBMAXIMAL GATED NUCLEAR STRESS TEST, 83% OF MAXIMUM PREDICTED HEART RATE AND 9.7 METS WITH NO EK G CHANGES. 2. THE PATIENT HAD CHEST PAIN NEAR THE END OF EXERCISE, BUT NO EKG CHANGES. 3. PRESERVED CARDIAC VOLUMES AND EJECTION FRACTION. 4. A VERY SMALL AREA OF PHOTOPENIA AT THE APEX THAT CHANGES VERY LITTLE FROM REST TO STRESS. 5. THIS IS A LOW-RISK STRESS TEST. Procedure performed and interpreted at [facility] Department of Radiology.
== END 2017-04-29 12:56 | disposition home or self-care (01) ==
LOC: N.ED 20:40 → N.EDINP 20:40 → SUATTDRO 23:43 → N.TELEN 04-28 00:31
PROVIDERS: ADMIT Family Medicine; ATTEND Internal Medicine

== ENCOUNTER 2018-08-23 18:37 | Observation (INO) ==
[2018-08-23 19:53] LABS: Apearance,Urine Slightly Hazy (Clear); Bilirubin,Urine Negative (Negative); Blood, Urine Negative (Negative); Glucose,Urine (UA) Negative (Negative); Ketones,Urine Negative (Negative); Mucus,Urine Occasional /LPF (Occasional); Nitrite,Urine Negative (Negative); Protein,Urine 100 MG/DL; RBC,Urine 1 /HPF (0-4); Squamous Epithelial Cell,Urine Occasional /HPF (0-10); Urine Color Yellow (Yellow); Urine Specific Gravity 1.024 (1.001-1.035); Urine Urobilinogen < 2.0 EU/DL (0.2-1.0); WBC,Urine <1 /HPF (0-6)
[2018-08-23 20:01] LABS: Basophils # 0.1 10*3/uL (0.0-0.2); Basophils % 0.6 % (0.0-0.8); Eosinophils # 0.3 10*3/uL (0.0-0.87); Eosinophils % 2.2 % (0.00-10.9); Hemoglobin 13.5 GM/DL (12.0-16.0); Immature Granulocytes % 0.5 %; Immature Granulocytes Absolute 0.06 #; Lymphocytes # 3.8 10*3/uL (1.4-4.0); Lymphocytes % 30.5 % (21.3-54.2); Mean Corpuscular HGB Conc 33.8 GM/DL (32-36); Mean Corpuscular Hemoglobin 28 PG (27-34); Mean Corpuscular Volume 82.8 FL (87-102); Monocytes # 1.1 10*3/uL (0.11-0.8); Monocytes % 8.4 % (1.7-12.7); Neutrophils # 7.2 10*3/uL (1.4-7.4); Neutrophils % 57.8 % (38.7-73.9); Platelet Count 373 T/CUMM (130-400); Red Blood Count 4.83 MC/CUMM (3.8-5.5); Red Cell Distribution Width 13.5 % (9.3-17.3); White Blood Count 12.5 T/CUMM (4-12)
[2018-08-23 20:07] LABS: Alanine Aminotransferase 37 U/L (13-56); Albumin 3.6 G/DL (3.4-5.0); Alkaline Phosphatase 76 U/L (45-117); Aspartate Amino Transferase 27 U/L (0-37); Bilirubin,Total < 0.39 MG/DL (0.2-1.0); Blood Urea Nitrogen 10 MG/DL (7-18); Calcium 9.3 MG/DL (8.5-10.1); Glucose 84 MG/DL (74-106); Osmolality,Calculated 274.5 MOS/KG (273-304); Potassium 3.7 MMOL/L (3.5-5.1); Sodium 139 MMOL/L (136-145); Total Protein 7.9 G/DL (6.4-8.3)
[2018-08-23] MEDS ORDERED: MORPHINE 4 MG/1 ML VIAL IV STA (20:30)
[2018-08-23] MEDS ORDERED: ENOXAPARIN 100 MG/ML SYRINGE SUBCUT STA (20:30)
[2018-08-23] MEDS ORDERED: ASPIRIN 325 MG TABLET PO STA (20:30)
[2018-08-23] MEDS ORDERED: ALUM/MAG/SIMETH/LIDO VISC 1:1 30 ML BOTTLE PO STA (20:30)
[2018-08-23] MEDS ORDERED: ONDANSETRON 4 MG/2 ML VIAL IV STA (20:30)
[2018-08-23] MEDS ORDERED: NITROGLYCERIN 2% OINT 1 INCH/GM PACK TOP STA (20:30)
[2018-08-24] MEDS ORDERED: MAGNESIUM SULF RIDER 2 GM in PREMIX 1 EACH IV PRN (00:58)
[2018-08-24] MEDS ORDERED: MAGNESIUM SULF RIDER 4 GM in PREMIX 1 EACH IV PRN (00:58)
[2018-08-24] MEDS ORDERED: SODIUM CHLORIDE 0.9% 1,000 ML IV SCH (00:58)
[2018-08-24] MEDS ORDERED: ONDANSETRON 4 MG/2 ML VIAL IV PRN (00:58)
[2018-08-24] MEDS ORDERED: hydrALAZINE 20 MG/1 ML VIAL IV PRN (00:58)
[2018-08-24] MEDS ORDERED: MORPHINE 4 MG/1 ML VIAL IV PRN (00:58)
[2018-08-24] MEDS ORDERED: POTASSIUM CHLORIDE 20 MEQ TABLET PO PRN (00:58)
[2018-08-24] MEDS ORDERED: HYOSCYAMINE 0.125 MG TABLET SL PRN (01:50)
[2018-08-24] MEDS ORDERED: NICOTINE 21 MG/24 HR PATCH TRANSDERM PRN (01:52)
[2018-08-24] MEDS ORDERED: ACETAMINOPHEN 325 MG TABLET PO PRN (01:52)
[2018-08-24] MEDS ORDERED: ZALEPLON 5 MG CAPSULE PO PRN (01:52)
[2018-08-24] MEDS ORDERED: BISACODYL 5 MG TABLET PO PRN (01:52)
[2018-08-24] MEDS ORDERED: LACTULOSE 20 GM/30 ML UDCUP PO PRN (01:52)
[2018-08-24] MEDS ORDERED: PROMETHAZINE 25 MG TABLET PO PRN (01:52)
[2018-08-24] MEDS ORDERED: DOCUSATE SODIUM 100 MG CAPSULE PO PRN (01:52)
[2018-08-24] MEDS: NITROGLYCERIN 2% OINT 1 INCH/GM PACK TOP SCH ×4 (02:12→17:45)
[2018-08-24 02:37] LABS: Basophils # 0.1 10*3/uL (0.0-0.2); Basophils % 0.8 % (0.0-0.8); Eosinophils # 0.3 10*3/uL (0.0-0.87); Eosinophils % 2.5 % (0.00-10.9); Hematocrit 34.7 VOL% (35.7-47.0); Hemoglobin 11.8 GM/DL (12.0-16.0); Immature Granulocytes % 0.4 %; Immature Granulocytes Absolute 0.05 #; Lymphocytes # 4.1 10*3/uL (1.4-4.0); Lymphocytes % 37.1 % (21.3-54.2); Mean Corpuscular Hemoglobin 28 PG (27-34); Mean Corpuscular Volume 83.4 FL (87-102); Mean Platelet Volume 8.8 FL (9.6-12.0); Monocytes # 0.9 10*3/uL (0.11-0.8); Monocytes % 7.8 % (1.7-12.7); Neutrophils # 5.7 10*3/uL (1.4-7.4); Neutrophils % 51.4 % (38.7-73.9); Platelet Count 309 T/CUMM (130-400); Red Blood Count 4.16 MC/CUMM (3.8-5.5); Red Cell Distribution Width 13.7 % (9.3-17.3); White Blood Count 11.1 T/CUMM (4-12)
[2018-08-24 02:50] LABS: Albumin 3.1 G/DL (3.4-5.0); Bilirubin,Total 0.4 MG/DL (0.2-1.0); Calcium 8.3 MG/DL (8.5-10.1); Total Protein 6.6 G/DL (6.4-8.3)
[2018-08-24 02:51] LABS: Osmolality,Calculated 277.5 MOS/KG (273-304); Potassium 3.7 MMOL/L (3.5-5.1); Risk Ratio 4.63; VLDL CHOLESTEROL 69.8 MG/DL
[2018-08-24] MEDS ORDERED: METOPROLOL SUCCINATE XL 25 MG TABLET PO SCH (09:00)
[2018-08-24] MEDS ORDERED: MODAFINIL 400 MG PO SCH (09:00)
[2018-08-24] MEDS ORDERED: PANTOPRAZOLE 40 MG TABLET PO SCH (09:00)
[2018-08-24] MEDS ORDERED: ASPIRIN EC 325 MG TABLET PO SCH (09:00)
[2018-08-24] MEDS: MONTELUKAST 10 MG TABLET PO SCH (10:49)
[2018-08-24] MEDS: PREGABALIN 75 MG CAPSULE PO SCH ×2 (10:49→20:47)
[2018-08-24] MEDS: PANTOPRAZOLE 40 MG TABLET PO SCH ×2 (10:49→20:48)
[2018-08-24] MEDS: busPIRone 10 MG TABLET PO SCH ×2 (10:49→20:47)
[2018-08-24] MEDS: TICAGRELOR 90 MG TABLET PO SCH ×2 (10:49→20:47)
[2018-08-24] MEDS: ROSUVASTATIN 20 MG TABLET PO SCH (10:49)
[2018-08-24] MEDS: METOPROLOL SUCCINATE XL 25 MG TABLET PO SCH ×2 (10:53→20:47)
[2018-08-24] MEDS: FLUoxetine 20 MG CAPSULE PO SCH (10:53)
[2018-08-24] MEDS ORDERED: NAPROXEN 250 MG TABLET PO ONE (11:35)
[2018-08-24] MEDS: ENOXAPARIN 80 MG/0.8 ML SYRINGE SUBCUT SCH ×2 (13:19→20:47)
[2018-08-24] MEDS ORDERED: ASPIRIN EC 81 MG TABLET PO SCH (21:00)
[2018-08-24] MEDS ORDERED: LISINOPRIL 5 MG TABLET PO SCH (21:00)
[2018-08-24] MEDS ORDERED: CETIRIZINE 10 MG TABLET PO SCH (21:00)
[2018-08-24] MEDS ORDERED: OXYBUTYNIN XL 5 MG TABLET PO SCH (21:00)
[2018-08-25] MEDS: NITROGLYCERIN 2% OINT 1 INCH/GM PACK TOP SCH ×2 (01:03→06:28)
[2018-08-25 04:05] LABS: Basophils # 0.1 10*3/uL (0.0-0.2); Basophils % 0.6 % (0.0-0.8); Eosinophils # 0.3 10*3/uL (0.0-0.87); Eosinophils % 2.9 % (0.00-10.9); Immature Granulocytes % 0.5 %; Immature Granulocytes Absolute 0.04 #; Lymphocytes # 3.7 10*3/uL (1.4-4.0); Lymphocytes % 43.5 % (21.3-54.2); Mean Corpuscular HGB Conc 34.3 GM/DL (32-36); Mean Corpuscular Hemoglobin 29 PG (27-34); Mean Corpuscular Volume 84.5 FL (87-102); Mean Platelet Volume 9.3 FL (9.6-12.0); Monocytes # 0.7 10*3/uL (0.11-0.8); Monocytes % 8.5 % (1.7-12.7); Neutrophils # 3.8 10*3/uL (1.4-7.4); Platelet Count 292 T/CUMM (130-400); Red Blood Count 4.14 MC/CUMM (3.8-5.5); Red Cell Distribution Width 13.4 % (9.3-17.3); White Blood Count 8.6 T/CUMM (4-12)
[2018-08-25 04:25] LABS: Calcium 7.7 MG/DL (8.5-10.1); Osmolality,Calculated 279.4 MOS/KG (273-304)
[2018-08-25 07:45] VITALS: BP 127/73
[2018-08-25] MEDS: MONTELUKAST 10 MG TABLET PO SCH (08:38)
[2018-08-25] MEDS: busPIRone 10 MG TABLET PO SCH (08:38)
[2018-08-25] MEDS: PANTOPRAZOLE 40 MG TABLET PO SCH (08:39)
[2018-08-25] MEDS: ROSUVASTATIN 20 MG TABLET PO SCH (08:39)
[2018-08-25] MEDS: METOPROLOL SUCCINATE XL 25 MG TABLET PO SCH (08:39)
[2018-08-25] MEDS: PREGABALIN 75 MG CAPSULE PO SCH (08:39)
[2018-08-25] MEDS: TICAGRELOR 90 MG TABLET PO SCH (08:40)
[2018-08-25] MEDS: FLUoxetine 20 MG CAPSULE PO SCH (08:40)
[2018-08-30] MEDS ORDERED: SEMAGLUTIDE SUBCUT SCH (09:00)
== END 2018-08-25 10:57 | disposition home or self-care (01) ==
LOC: N.ED 18:37 → INTOOBSV 20:46 → N.EDINP 20:46 → N.TELES 20:58
PROVIDERS: ADMIT Internal Medicine Interventional Cardiology; ATTEND Internal Medicine Interventional Cardiology

== ENCOUNTER 2020-10-01 13:50 | Observation (INO) ==
[2020-10-01 14:18] LABS: Basophils # 0.1 10*3/uL (0.0-0.2); Basophils % 0.6 % (0.0-0.8); Eosinophils # 0.4 10*3/uL (0.0-0.87); Hematocrit 41.3 VOL% (35.7-47.0); Immature Granulocytes % 0.6 %; Immature Granulocytes Absolute 0.07 #; Lymphocytes # 3.3 10*3/uL (1.4-4.0); Lymphocytes % 27.5 % (21.3-54.2); Mean Corpuscular HGB Conc 33.9 GM/DL (32-36); Mean Platelet Volume 8.5 FL (9.6-12.0); Monocytes % 8.1 % (1.7-12.7); Neutrophils % 60.2 % (38.7-73.9); Platelet Count 372 T/CUMM (130-400); Red Cell Distribution Width 12.9 % (9.3-17.3); White Blood Count 12.2 T/CUMM (4-12)
[2020-10-01 14:30] LABS: INR 0.9; PT Patient Result 9.5 SECS (9.8-11.9); Partial Thromboplastin Time 28.2 SECS (23.9-33.8)
[2020-10-01] MEDS ORDERED: METOPROLOL TARTRATE 5 MG/5 ML VIAL IV STA (14:33)
[2020-10-01] MEDS ORDERED: ONDANSETRON 4 MG/2 ML VIAL IV STA (14:33)
[2020-10-01] MEDS ORDERED: HYDROmorphone 2 MG/1 ML VIAL IV STA (14:33)
[2020-10-01] MEDS ORDERED: ASPIRIN 325 MG TABLET PO STA (14:33)
[2020-10-01 14:39] LABS: Alanine Aminotransferase 30 U/L (13-56); Albumin 3.7 G/DL (3.4-5.0); Alkaline Phosphatase 79 U/L (45-117); Aspartate Amino Transferase 13 U/L (0-37); Bilirubin,Total < 0.39 MG/DL (0.2-1.0); Blood Urea Nitrogen 9 MG/DL (7-18); Calcium 8.7 MG/DL (8.5-10.1); Carbon Dioxide 26 MMOL/L (21-32); Estimated Glom Filtration Rate 97 ML/MIN; Glucose 86 MG/DL (74-106); Osmolality,Calculated 270.8 MOS/KG (273-304); Potassium 3.8 MMOL/L (3.5-5.1); Sodium 137 MMOL/L (136-145); Total Protein 7.6 G/DL (6.4-8.3)
[2020-10-01] MEDS ORDERED: DEXTROSE 50% 25 GM/50 ML VIAL IV PRN (16:50)
[2020-10-01] MEDS ORDERED: GLUCAGON 1 MG VIAL IM PRN (16:50)
[2020-10-01] MEDS ORDERED: ACETAMINOPHEN 325 MG TABLET PO PRN (16:50)
[2020-10-01] MEDS ORDERED: ONDANSETRON 4 MG/2 ML VIAL IV PRN (16:50)
[2020-10-01] MEDS ORDERED: SIMETHICONE CHEW 125 MG TABLET PO PRN (16:50)
[2020-10-01] MEDS ORDERED: NICOTINE 21 MG/24 HR PATCH TRANSDERM PRN (16:50)
[2020-10-01] MEDS ORDERED: busPIRone 10 MG TABLET PO PRN (17:06)
[2020-10-01] MEDS ORDERED: NITROGLYCERIN SL 0.4 MG TABLET SL PRN (17:06)
[2020-10-01] MEDS ORDERED: CYCLOBENZAPRINE 10 MG TABLET PO PRN (17:06)
[2020-10-01] MEDS ORDERED: PANTOPRAZOLE 40 MG TABLET PO SCH (17:30)
[2020-10-01] MEDS ORDERED: ENOXAPARIN 40 MG/0.4 ML SYRINGE SUBCUT SCH (18:00)
[2020-10-01] MEDS ORDERED: MELOXICAM 7.5 MG TABLET PO PRN (21:00)
[2020-10-01] MEDS ORDERED: DEXTROAMPHETAMINE AMPHETAMINE 20 MG PO SCH (21:00)
[2020-10-01 21:57] LABS: INR 0.9; PT Patient Result 9.8 SECS (9.8-11.9); Partial Thromboplastin Time 25.4 SECS (23.9-33.8)
[2020-10-01] MEDS: ASPIRIN EC 81 MG TABLET PO SCH (22:00)
[2020-10-01] MEDS: ROSUVASTATIN 20 MG TABLET PO SCH (22:00)
[2020-10-01] MEDS: METOPROLOL SUCCINATE XL 25 MG TABLET PO SCH (22:01)
[2020-10-01] MEDS: OXYBUTYNIN XL 10 MG TABLET PO SCH (22:01)
[2020-10-01] MEDS: TICAGRELOR 90 MG TABLET PO SCH (22:01)
[2020-10-01] MEDS: lisinopriL 10 MG TABLET PO SCH (22:01)
[2020-10-01] MEDS: PANTOPRAZOLE 40 MG TABLET PO SCH (22:01)
[2020-10-01] MEDS: DOCUSATE SODIUM 100 MG CAPSULE PO SCH (22:01)
[2020-10-02 05:13] LABS: Basophils # 0.1 10*3/uL (0.0-0.2); Basophils % 0.7 % (0.0-0.8); Eosinophils # 0.4 10*3/uL (0.0-0.87); Eosinophils % 3.6 % (0.00-10.9); Hematocrit 41.3 VOL% (35.7-47.0); Hemoglobin 13.3 GM/DL (12.0-16.0); Immature Granulocytes % 0.4 %; Immature Granulocytes Absolute 0.05 #; Lymphocytes # 4.5 10*3/uL (1.4-4.0); Lymphocytes % 36.9 % (21.3-54.2); Mean Corpuscular HGB Conc 32.2 GM/DL (32-36); Mean Corpuscular Volume 88.4 FL (87-102); Mean Platelet Volume 8.7 FL (9.6-12.0); Monocytes % 8.4 % (1.7-12.7); Platelet Count 336 T/CUMM (130-400); Red Blood Count 4.67 MC/CUMM (3.8-5.5); Red Cell Distribution Width 13.2 % (9.3-17.3); White Blood Count 12.1 T/CUMM (4-12)
[2020-10-02 05:39] LABS: Hypochromasia 1+; Microcytosis 1+; Platelet Estimate Normal
[2020-10-02 05:52] LABS: Albumin 2.9 G/DL (3.4-5.0); Bilirubin,Total 0.5 MG/DL (0.2-1.0); Calcium 8.1 MG/DL (8.5-10.1); Osmolality,Calculated 270.8 MOS/KG (273-304); Potassium 3.9 MMOL/L (3.5-5.1); Risk Ratio 5.61; Thyroid Stimulating Hormone 2.14 uIU/ml (0.358-3.74); Total Protein 6.3 G/DL (6.4-8.3); VLDL CHOLESTEROL 47.6 MG/DL
[2020-10-02] MEDS ORDERED: ASPIRIN CHEW 81 MG TABLET PO SCH (09:00)
[2020-10-02] MEDS ORDERED: BIMATOPROST 0.03% TOP SCH (09:00)
[2020-10-02] MEDS: DOCUSATE SODIUM 100 MG CAPSULE PO SCH ×2 (09:39→21:56)
[2020-10-02] MEDS: PANTOPRAZOLE 40 MG TABLET PO SCH ×2 (09:39→21:57)
[2020-10-02] MEDS: VENLAFAXINE 75 MG TABLET PO SCH (09:39)
[2020-10-02] MEDS: TICAGRELOR 90 MG TABLET PO SCH (09:39)
[2020-10-02] MEDS: METOPROLOL SUCCINATE XL 25 MG TABLET PO SCH ×2 (09:40→21:56)
[2020-10-02] MEDS: POLYETHYLENE GLYCOL POWDER 17 GM PACK PO SCH ×2 (11:01→21:56)
[2020-10-02] MEDS: ASPIRIN EC 81 MG TABLET PO SCH (21:56)
[2020-10-02] MEDS: ROSUVASTATIN 20 MG TABLET PO SCH (21:56)
[2020-10-02] MEDS: OXYBUTYNIN XL 10 MG TABLET PO SCH (21:57)
[2020-10-02] MEDS: lisinopriL 10 MG TABLET PO SCH (22:02)
[2020-10-03 04:16] LABS: Basophils # 0.1 10*3/uL (0.0-0.2); Basophils % 0.6 % (0.0-0.8); Eosinophils # 0.4 10*3/uL (0.0-0.87); Eosinophils % 2.7 % (0.00-10.9); Hematocrit 38.2 VOL% (35.7-47.0); Immature Granulocytes % 0.5 %; Immature Granulocytes Absolute 0.08 #; Lymphocytes # 4.7 10*3/uL (1.4-4.0); Lymphocytes % 29.5 % (21.3-54.2); Mean Platelet Volume 9.2 FL (9.6-12.0); Monocytes % 8.6 % (1.7-12.7); Neutrophils % 58.1 % (38.7-73.9); Platelet Count 365 T/CUMM (130-400); Red Blood Count 4.44 MC/CUMM (3.8-5.5); Red Cell Distribution Width 12.8 % (9.3-17.3)
[2020-10-03 04:39] LABS: Hypochromasia 1+; Microcytosis 1+; Platelet Estimate Normal
[2020-10-03 04:55] LABS: Alanine Aminotransferase 24 U/L (13-56); Albumin 2.9 G/DL (3.4-5.0); Alkaline Phosphatase 61 U/L (45-117); Aspartate Amino Transferase 14 U/L (0-37); Bilirubin,Total < 0.39 MG/DL (0.2-1.0); Blood Urea Nitrogen 13 MG/DL (7-18); Calcium 8.1 MG/DL (8.5-10.1); Carbon Dioxide 25 MMOL/L (21-32); Estimated Glom Filtration Rate 114 ML/MIN; Glucose 90 MG/DL (74-106); Osmolality,Calculated 276.5 MOS/KG (273-304); Potassium 4.5 MMOL/L (3.5-5.1); Sodium 139 MMOL/L (136-145); Total Protein 6.4 G/DL (6.4-8.3)
[2020-10-03] MEDS: VENLAFAXINE 75 MG TABLET PO SCH (09:04)
[2020-10-03] MEDS: DOCUSATE SODIUM 100 MG CAPSULE PO SCH (09:04)
[2020-10-03] MEDS: POLYETHYLENE GLYCOL POWDER 17 GM PACK PO SCH (09:05)
[2020-10-03] MEDS: PANTOPRAZOLE 40 MG TABLET PO SCH (09:05)
[2020-10-03] MEDS: METOPROLOL SUCCINATE XL 25 MG TABLET PO SCH (09:05)
[2020-10-03 12:26] VITALS: BP 116/60
== END 2020-10-03 15:31 | disposition home or self-care (01) ==
LOC: N.ED 13:50 → N.EDINP 13:50 → N.TELES 21:02
PROVIDERS: ADMIT Internal Medicine; ATTEND Internal Medicine